=== PATIENT | male | born 1945 | race Caucasian/White ===

== ENCOUNTER 2017-10-31 01:20 | Emergency (ER) | payer MEDICARE ==
[~2017-10-31] VITALS: Ht 165.1 cm; Wt 78.6 kg
[2017-10-31 01:22] VITALS: TEMP 97.7
[2017-10-31 02:06] LABS: BASO # 0.1 (0.0-0.2); BASO % 0.6 % (0.0-2.0); EOS # 0.2 (0.0-0.7); EOS % 2.2 % (0-4.0); GRAN # 5.4 (1.4-6.5); GRAN % 67.1 % (42.2-75.2); HEMATOCRIT 37.8 % (42.0-52.0); HEMOGLOBIN 12.8 g/dl (13.5-18.0); LYMPH # 1.6 (1.2-3.4); LYMPH % 19.4 % (20.0-51.0); MEAN CELL VOLUME 85 fl (80.0-100.0); MEAN CORPUSCULAR HEMOGLOBIN 29 pg (27.0-31.0); MEAN CORPUSCULAR HGB CONC 34 g/dl (33.0-37.0); MEAN PLATELET VOLUME 9.9 fl (7.4-10.4); MONO # 0.8 (0.1-0.6); MONO % 10.5 % (1.7-9.3); PLATELET COUNT 265 K/mm3 (130-400); RED BLOOD COUNT 4.44 M/mm3 (4.20-5.60); REDCELL DISTRIBUTION WIDTH-CV 17.2 % (11.5-14.5)
[2017-10-31 02:19] LABS: ALANINE AMINOTRANSFERASE 34 U/L (21-72); ALBUMIN 4.4 gm/dL (3.5-5.0); ALKALINE PHOSPHATASE 72 U/L (50-136); ANION GAP 14 mmol/L (7-16); AST,SGOT 27 U/L (15-37); BILIRUBIN,TOTAL 0.3 mg/dL (0.0-1.0); BLOOD UREA NITROGEN 18 mg/dL (9-20); C-REACTIVE PROTEIN 1.7 mg/dL (0.0-0.9); CALCIUM 9.6 mg/dL (8.4-10.2); CARBON DIOXIDE 27 mmol/L (22-30); CHLORIDE 98 mmol/L (98-107); CREATININE, serum 1.18 mg/dL (0.66-1.25); GLUCOSE 153 mg/dL (74-106); POTASSIUM 5.1 mmol/L (3.4-5.0); SODIUM 138 mmol/L (137-145); TOTAL PROTEIN 7.6 gm/dL (6.4-8.2)
[2017-10-31] MEDS ORDERED: CATAPRES0.2 MG PO (02:20)
[2017-10-31] MEDS ORDERED: ASPIRIN 81M81 MG/TA2 PO (02:20)
[2017-10-31] MEDS ORDERED: LEXAPRO 10MG10 MG PO (02:22)
[2017-10-31] MEDS ORDERED: CARDIZEM CD 30300 MG PO (02:22)
[2017-10-31] MEDS ORDERED: FERROCITE324 MG PO (02:22)
[2017-10-31] MEDS ORDERED: LAMICTAL150 MG (02:23)
[2017-10-31] MEDS ORDERED: FLOMAX 0.40.4 MG/CAP PO (02:23)
[2017-10-31] MEDS ORDERED: FORTAMET500 M1 PO (02:24)
[2017-10-31] MEDS ORDERED: ZESTRIL40 MG PO (02:24)
[2017-10-31] MEDS ORDERED: CENTRUM SILVER1 TAB (02:24)
[2017-10-31] MEDS ORDERED: PRILOSEC 20MG20 MG PO (02:25)
[2017-10-31] MEDS ORDERED: PRAVACHOL 20MG20 MG PO (02:25)
[2017-10-31] MEDS ORDERED: MYSOLINE 250MG250 MG PO (02:25)
[2017-10-31] MEDS ORDERED: ALDACTONE50 MG PO (02:26)
[2017-10-31 02:27] LABS: ERYTHROCYTE SEDIMENTATION RATE 4 mm/hr (0-30)
[2017-10-31] MEDS ORDERED: NORCO 325 MG-51 TAB PO (02:28)
[2017-10-31 02:29] LABS: TROPONIN-I < 0.012 ng/mL (0.000-0.034)
[2017-10-31] MEDS ORDERED: FLEXERIL 1010 MG/TAB PO (04:17)
[2017-10-31] MEDS ORDERED: PERCOCET 325 MG1 TA2 PO (04:17)
[2017-10-31 04:30] VITALS: BP 150/81; PULSE 74
== END 2017-10-31 04:30 | disposition home or self-care (01) ==
LOC: COL.ER 01:20
PROVIDERS: Emergency Medicine
DX: M25.532 Pain in left wrist (principal); M79.632 Pain in left forearm; I12.9 Hypertensive chronic kidney disease with stage 1 through stage 4 chronic kidney disease, or unspecified chronic kidney disease; N18.9 Chronic kidney disease, unspecified; E11.9 Type 2 diabetes mellitus without complications; F32.9 Major depressive disorder, single episode, unspecified; Z79.82 Long term (current) use of aspirin; Z79.84 Long term (current) use of oral hypoglycemic drugs

== ENCOUNTER 2018-01-13 20:59 | Emergency (ER) | payer MEDICARE ==
[~2018-01-13] VITALS: Ht 160 cm; Wt 79.5 kg
[~2018-01-13 20:59] MED LIST: ALDACTONE50 MG PO; ASPIRIN 81M81 MG/TA2 PO; CARDIZEM CD 30300 MG PO; CATAPRES0.2 MG PO; CENTRUM SILVER1 TAB PO; FERROCITE324 MG PO; FLEXERIL 1010 MG/TAB PO; FLOMAX 0.40.4 MG/CAP PO; FORTAMET500 M1 PO; LAMICTAL150 MG PO; LEXAPRO 10MG10 MG PO; MYSOLINE 250MG250 MG PO; NORCO 325 MG-51 TAB PO; PERCOCET 325 MG1 TA2 PO; PRAVACHOL 20MG20 MG PO; PRILOSEC 20MG20 MG PO; ZESTRIL40 MG PO
[2018-01-13 21:02] VITALS: BP 169/94; TEMP 98.1
[2018-01-13] MEDS ORDERED: PRINIVIL40 MG PO (21:13)
[2018-01-13] MEDS ORDERED: ZOLOFT 50MG50 MG PO (21:19)
[2018-01-13 22:02] VITALS: PULSE 81
== END 2018-01-13 22:02 | disposition home or self-care (01) ==
LOC: COL.ER 20:59
DX: S61.011A Laceration without foreign body of right thumb without damage to nail, initial encounter (principal); Z79.82 Long term (current) use of aspirin; Z79.84 Long term (current) use of oral hypoglycemic drugs; W27.4XXA Contact with kitchen utensil, initial encounter

== ENCOUNTER 2019-01-07 00:04 | Emergency (ER) | payer MEDICARE ==
[~2019-01-07] VITALS: Ht 160 cm; Wt 80.5 kg
[~2019-01-07 00:04] MED LIST changes: +PLAVIX 75MG TAB75 MG PO; +PRINIVIL40 MG PO; +VALTREX 50500 MG/TAB PO; +ZOLOFT 50MG50 MG PO
[2019-01-07 00:16] VITALS: BP 148/82; TEMP 98
[2019-01-07 00:33] LABS: BASO # 0.1 (0.0-0.2); BASO % 0.7 % (0.0-2.0); EOS # 0.2 (0.0-0.7); EOS % 2.5 % (0-4.0); GRAN # 5.2 (1.4-6.5); HEMOGLOBIN 10.7 g/dl (13.5-18.0); LYMPH # 1.2 (1.2-3.4); LYMPH % 16.8 % (20.0-51.0); MEAN CELL VOLUME 94 fl (80.0-100.0); MEAN CORPUSCULAR HEMOGLOBIN 32 pg (27.0-31.0); MEAN CORPUSCULAR HGB CONC 34 g/dl (33.0-37.0); MEAN PLATELET VOLUME 10.2 fl (7.4-10.4); MONO # 0.6 (0.1-0.6); PLATELET COUNT 211 K/mm3 (130-400); RED BLOOD COUNT 3.38 M/mm3 (4.20-5.60); REDCELL DISTRIBUTION WIDTH-CV 15.4 % (11.5-14.5)
[2019-01-07 00:34] LABS: PROTHROMBIN TIME 11.4 SECONDS (9.7-12.8)
[2019-01-07 00:38] LABS: ALANINE AMINOTRANSFERASE 26 U/L (21-72); ALKALINE PHOSPHATASE 65 U/L (50-136); ANION GAP 13 mmol/L (7-16); AST,SGOT 34 U/L (15-37); BILIRUBIN,TOTAL 0.4 mg/dL (0.0-1.0); BLOOD UREA NITROGEN 20 mg/dL (9-20); CALCIUM 9.1 mg/dL (8.4-10.2); CARBON DIOXIDE 22 mmol/L (22-30); CHLORIDE 96 mmol/L (98-107); CREATININE, serum 1.09 (0.66-1.25); GLUCOSE 92 mg/dL (74-106); POTASSIUM 4.7 mmol/L (3.4-5.0); SODIUM 131 mmol/L (137-145); TOTAL PROTEIN 6.6 gm/dL (6.4-8.2)
[2019-01-07 00:42] LABS: HEMATOCRIT 31.7 % (42.0-52.0)
[2019-01-07 00:50] LABS: TROPONIN-I < 0.012 ng/mL (0.000-0.035)
[2019-01-07 06:08] VITALS: PULSE 87
== END 2019-01-07 02:19 | disposition home or self-care (01) ==
LOC: COL.ER 00:04
PROVIDERS: Emergency Medicine
DX: S06.0X0A Concussion without loss of consciousness, initial encounter (principal); S01.81XA Laceration without foreign body of other part of head, initial encounter; I10 Essential (primary) hypertension; E78.5 Hyperlipidemia, unspecified; Z79.02 Long term (current) use of antithrombotics/antiplatelets; Z79.84 Long term (current) use of oral hypoglycemic drugs; Z86.73 Personal history of transient ischemic attack (TIA), and cerebral infarction without residual deficits; W19.XXXA Unspecified fall, initial encounter; W22.8XXA Striking against or struck by other objects, initial encounter; Y92.009 Unspecified place in unspecified non-institutional (private) residence as the place of occurrence of the external cause

== ENCOUNTER → 2019-02-17 | Outpatient (CLI) | payer MEDICARE | LOC: COL.LAB 12:29 | DX: H53.2 Diplopia (principal) ==

== ENCOUNTER → 2019-03-22 | Outpatient (CLI) | payer MEDICARE | LOC: COL.VAS 15:00 | DX: M79.605 Pain in left leg (principal) ==

== ENCOUNTER → 2019-08-08 | Outpatient (CLI) | payer MEDICARE | LOC: COL.VAS 12:24 | DX: M25.462 Effusion, left knee (principal); Z98.890 Other specified postprocedural states ==

== ENCOUNTER → 2020-01-24 | Outpatient (CLI) | payer MEDICARE ==
[~2020-01-24] MED LIST changes: +AMBIEN 10MG10 MG PO; +LIDO4 NS; +MEDROL 4MG DOSPA4 MG PO; +MULTI VITAMINS1 TAB PO; +NORCO 325 MG-7.1 TAB PO; +REMERON 15M15 MG/TA1 PO; +RT ADVAIR HFA 1112 G IH; +SALAGEN 5MG TAB5 MG PO; +TOPAMAX 25MG25 M1 PO; +TOPAMAX50 MG PO; +ZANAFLEX 4MG TAB4 MG PO
== END ==
LOC: COL.PUL 10-17 13:00
DX: R06.02 Shortness of breath (principal)
CPT/HCPCS: J7674

== ENCOUNTER → 2020-04-03 | Outpatient (CLI) | payer MEDICARE | LOC: COL.RAD 10:11 | DX: K80.20 Calculus of gallbladder without cholecystitis without obstruction (principal) ==

== ENCOUNTER → 2021-04-01 | Outpatient (CLI) | payer MEDICARE | LOC: COL.RAD 06:41 | DX: R10.84 Generalized abdominal pain (principal) | CPT/HCPCS: A9537; J2805 ==

== ENCOUNTER → 2022-05-30 | Outpatient (CLI) | payer MEDICARE | LOC: COL.RAD 13:01 | DX: M47.812 Spondylosis without myelopathy or radiculopathy, cervical region (principal); M50.222 Other cervical disc displacement at C5-C6 level; M48.02 Spinal stenosis, cervical region; Z98.1 Arthrodesis status ==

== ENCOUNTER → 2024-05-04 | Outpatient (CLI) | payer MEDICARE | LOC: COL.RAD 10:14 | DX: M17.12 Unilateral primary osteoarthritis, left knee (principal); M25.862 Other specified joint disorders, left knee ==